=== PATIENT | male | born 1970 | race Caucasian/White ===

== ENCOUNTER → 2019-08-21 | Outpatient (CLI) | payer OTHER ==
--- NOTE | 2019-08-21 12:27 | REP ---
Clinical: Trauma. Technique: Frontal view of the chest with multiple views of the left hemithorax. Findings: Minimally displaced fractures along the posterolateral aspect of the left fifth and sixth ribs noted. Subtle nondisplaced fracture along the posterolateral aspect of the seventh and eighth rib are also suspected. Frontal view of the chest demonstrates subtle left basilar atelectasis without evidence for contusion, effusion, or pneumothorax. Impression: Posterolateral left 5th through 8th rib fractures. Electronically Signed by Lane Gee MD 08/21/2019 12:19 P
== END ==
LOC: M WUC 11:53
PROVIDERS: ATTEND Family Medicine
DX: R07.81 Pleurodynia (principal); Z87.81 Personal history of (healed) traumatic fracture

== ENCOUNTER → 2020-07-25 | Outpatient (CLI) | payer SELFPAY | LOC: M LABSMTC 09:14 | PROVIDERS: ATTEND Pediatrics | DX: Z20.822 Contact with and (suspected) exposure to COVID-19 (principal) ==

== ENCOUNTER → 2022-06-09 | Outpatient (CLI) | payer OTHER | LOC: M RAD 08:10 | PROVIDERS: ATTEND Nurse Practitioner Adult Health | DX: Z12.2 Encounter for screening for malignant neoplasm of respiratory organs (principal); F17.210 Nicotine dependence, cigarettes, uncomplicated ==

== ENCOUNTER → 2022-07-28 | Outpatient (CLI) | payer OTHER | LOC: M RAD 14:16 | PROVIDERS: ATTEND Nurse Practitioner Adult Health | DX: I65.02 Occlusion and stenosis of left vertebral artery (principal); I10 Essential (primary) hypertension; F17.210 Nicotine dependence, cigarettes, uncomplicated ==

== ENCOUNTER → 2022-09-07 | Outpatient (CLI) | payer OTHER ==
[~2022-09-07] MED LIST: AMLO1TAB25 PO; CLON-412 PO; FAMO1TAB11 PO; LISI40TA4 PO
== END ==
LOC: M LABSMTC 09:43
PROVIDERS: ATTEND Anesthesiology
DX: Z01.818 Encounter for other preprocedural examination (principal)

== ENCOUNTER 2022-09-12 09:49 | Day surgery (SDC) | payer OTHER ==
[~2022-09-12] VITALS: Ht 170.2 cm; Wt 62.1 kg
[~2022-09-12 09:49] MED LIST changes: +NS 1,000 ML IV ONE
[2022-09-12] MEDS ORDERED: propofoL 200 MG/20 ML VIAL As Ordered ONE (10:59)
[2022-09-12] MEDS ORDERED: LIDOCAINE 2% 100MG/5ML SDV (FOR ANES.) As Ordered ONE (10:59)
[2022-09-12 12:18] VITALS: BP 117/58
== END 2022-09-12 12:18 | disposition home or self-care (01) ==
LOC: M OPP 09:49
PROVIDERS: ATTEND Internal Medicine Gastroenterology
DX: Z12.11 Encounter for screening for malignant neoplasm of colon (principal); K64.0 First degree hemorrhoids; D12.6 Benign neoplasm of colon, unspecified; I10 Essential (primary) hypertension; I65.21 Occlusion and stenosis of right carotid artery; F17.200 Nicotine dependence, unspecified, uncomplicated; Z79.899 Other long term (current) drug therapy

== ENCOUNTER → 2022-12-27 | Outpatient (CLI) | payer OTHER ==
[~2022-12-27] MED LIST changes: -NS 1,000 ML IV ONE
== END ==
LOC: M RAD 13:24
PROVIDERS: ATTEND Nurse Practitioner Adult Health
DX: D49.1 Neoplasm of unspecified behavior of respiratory system (principal); Z12.2 Encounter for screening for malignant neoplasm of respiratory organs

== ENCOUNTER → 2024-04-11 | Outpatient (CLI) | payer OTHER | LOC: M RAD 10:28 | PROVIDERS: ATTEND Nurse Practitioner Family | DX: Z87.891 Personal history of nicotine dependence (principal) ==

== ENCOUNTER → 2025-01-23 | Outpatient (CLI) | payer OTHER ==
[~2025-01-23] MED LIST changes: +LISI40TA10 PO; -LISI40TA4 PO
== END ==
LOC: M RAD 12:44
PROVIDERS: ATTEND Surgery
DX: I65.23 Occlusion and stenosis of bilateral carotid arteries (principal)

== ENCOUNTER → 2025-05-13 | Outpatient (CLI) | payer OTHER | LOC: M RAD 09:15 | PROVIDERS: ATTEND Nurse Practitioner Family | DX: F17.210 Nicotine dependence, cigarettes, uncomplicated (principal) ==

== ENCOUNTER → 2025-06-19 | Outpatient (CLI) | payer OTHER | LOC: M WHC 11:50 | PROVIDERS: ATTEND Nurse Practitioner Family | DX: I70.323 Atherosclerosis of unspecified type of bypass graft(s) of the extremities with rest pain, bilateral legs (principal) ==

== ENCOUNTER → 2025-06-25 | Outpatient (CLI) | payer OTHER ==
[2025-06-25 12:42] LABS: BASO # 0.1 10^3/uL (0.0-0.2); BASO % 0.5 % (0.0-1.0); EOS # 0.4 10^3/uL (0.0-0.5); EOS % 2.7 % (0.0-3.0); LYMPH # 2.6 10^3/uL (1.5-5.0); LYMPH % 20.4 % (24.0-44.0); MONO # 1.2 10^3/uL (0.0-0.8); MONO % 9.3 % (2.0-8.0); NEUTROPHILS # 8.5 10^3/uL (1.5-8.5); NEUTROPHILS % 66.7 % (36.0-66.0); PLATELET COUNT, AUTOMATED 433 10^3/uL (150-450)
[2025-06-25 12:51] LABS: ALT/SGPT 30.0 U/L (7.0-40); AST/SGOT 31.0 U/L (<34); CALCIUM LEVEL 9.2 MG/DL (8.5-10.1); CARBON DIOXIDE LEVEL 27.0 MMOL/L (20-31); CHLORIDE LEVEL 103.0 MMOL/L (98-107); CHOLESTEROL LEVEL 158.0 MG/DL (<200); CHOLESTEROL RISK RATIO 4.09 (<5); CREATININE FOR GFR 1.44 MG/DL (0.70-1.30); GLOMERULAR FILTRATION RATE 57.0 (>56); LDL CHOLESTEROL 95.8 MG/DL (<100); NON-HDL-C 119.4 MG/DL; POTASSIUM SERUM 5.4 MMOL/L (3.5-5.1); SODIUM LEVEL 136.0 MMOL/L (136-145); TRIGLYCERIDES LEVEL 118.0 MG/DL (<150)
[2025-06-25 13:08] LABS: ESTIMATED AVERAGE GLUCOSE 123.0 MG/DL (60-110)
[2025-06-25 13:14] LABS: CREATININE, URINE 121.2 MG/DL; MALB URINE SIEMENS 3.0 MG/L
[2025-06-25 14:13] LABS: MAU/CREAT RATIO 0.0 MCG/MG (0.0-30.0)
== END ==
LOC: M LABDRWAD 10:13
DX: I10 Essential (primary) hypertension (principal); I70.90 Unspecified atherosclerosis; Z13.1 Encounter for screening for diabetes mellitus